=== PATIENT | female | born 1965 | race African-American/Black ===

== ENCOUNTER 2017-08-02 13:56 | Emergency (ER) | payer MEDICAID ==
[~2017-08-02] VITALS: Ht 165.1 cm; Wt 64.0 kg
[2017-08-02 14:30] VITALS: BP 185/100
== END 2017-08-02 22:33 | disposition left against medical advice (07) ==
LOC: ER 13:56
DX: M54.2 Cervicalgia (principal); R20.0 Anesthesia of skin; I10 Essential (primary) hypertension; E05.00 Thyrotoxicosis with diffuse goiter without thyrotoxic crisis or storm; J44.9 Chronic obstructive pulmonary disease, unspecified
CPT/HCPCS: 99281